=== PATIENT | male | born 1945 ===

== ENCOUNTER 2019-07-29 17:54 | Observation (INO) ==
[2019-07-29 19:19] LABS: Eosinophils % 6.2 %; Hematocrit 24.2 % (37.5-50.1); Hemoglobin 7.1 g/dL (12.9-16.9); Immature Granulocytes % 0.6 % (0-4); Lymphocytes % 30.1 %; Mean Corpuscular HGB Conc 29.3 g/dL (31.6-35.5); Mean Corpuscular Hemoglobin 24.8 pg (28.0-33.3); Mean Corpuscular Volume 84.6 fL (83.0-100.0); Mean Platelet Volume 8.4 fL (9.4-12.4); Monocytes % 8.7 %; Platelet Count 340 K/mcL (140-400); Red Blood Count 2.86 M/mcL (4.19-5.50); Red Cell Distribution Width 15.9 % (11.5-14.5); Segmented Neutrophils % 53.5 %; White Blood Count 9.4 K/mcL (4.3-11.1)
[2019-07-29 19:20] LABS: Basophils # 0.1 K/mcL (0.0-0.2); Basophils % 0.9 %; Eosinophils # 0.6 K/mcL (0.0-0.6); Lymphocytes # 2.8 K/mcL (0.6-4.6); Monocytes # 0.8 K/mcL (0.0-1.3)
[2019-07-29 19:21] LABS: INR 1.2; Prothrombin Time 13.3 Seconds (9.4-12.1)
[2019-07-29] MEDS ORDERED: Pantoprazole 40 MG VIAL IVP ONE (20:55)
[2019-07-29] MEDS ORDERED: 0.9 % Sodium Chloride 250 ML ONE (22:50)
[2019-07-30] MEDS ORDERED: Naloxone 0.4 MG/ML INJ IVP PRN (01:19)
[2019-07-30] MEDS ORDERED: *HR* Heparin 5,000 UNIT/ML VIAL IVP ONE ×2 (01:21→01:45)
[2019-07-30] MEDS ORDERED: *HR* Heparin 5,000 UNIT/ML VIAL IVP PRN ×2 (01:21)
[2019-07-30] MEDS ORDERED: Iron Sucrose Complex 200 MG in 0.9 % Sodium Chloride 100 ML IVPB ONE (01:22)
[2019-07-30] MEDS ORDERED: Cyanocobalamin (B-12) 1,000 MCG/ML VIAL SQ ONE (01:22)
[2019-07-30] MEDS ORDERED: Heparin 25,000 UNIT/250 ML D5W 25,000 UNIT/250 ML IV.SOLN IVC SCH ×3 (01:30→02:00)
[2019-07-30 02:37] LABS: INR 1.1; Prothrombin Time 12.4 Seconds (9.4-12.1)
[2019-07-30 02:39] LABS: Basophils # 0.1 K/mcL (0.0-0.2); Basophils % 0.6 %; Eosinophils # 0.5 K/mcL (0.0-0.6); Eosinophils % 5.8 %; Hematocrit 24.7 % (37.5-50.1); Hemoglobin 7.3 g/dL (12.9-16.9); Immature Granulocytes % 0.3 % (0-4); Lymphocytes # 2.8 K/mcL (0.6-4.6); Lymphocytes % 30.7 %; Mean Corpuscular HGB Conc 29.6 g/dL (31.6-35.5); Mean Corpuscular Hemoglobin 25.2 pg (28.0-33.3); Mean Corpuscular Volume 85.2 fL (83.0-100.0); Mean Platelet Volume 8.5 fL (9.4-12.4); Monocytes # 0.8 K/mcL (0.0-1.3); Monocytes % 8.4 %; Neutrophils # 4.9 K/mcL (1.6-8.9); Platelet Count 307 K/mcL (140-400); Red Cell Distribution Width 16.1 % (11.5-14.5); Segmented Neutrophils % 54.2 %; White Blood Count 9.1 K/mcL (4.3-11.1)
[2019-07-30 02:55] LABS: Alanine Aminotransferase 9 Units/L (7-52); Albumin 3.4 g/dL (3.5-5.7); Albumin/Globulin Ratio 1.2 (1.1-2.2); Alkaline Phosphatase 53 Units/L (34-104); Aspartate Amino Transferase 9 Units/L (13-39); BUN/Creatinine Ratio 23 (6-26); Bilirubin,Total 0.4 mg/dL (0.3-1.0); Blood Urea Nitrogen 24 mg/dL (8-23); Calcium 8.4 mg/dL (8.6-10.3); Carbon Dioxide 22 mEq/L (23-29); Chloride 105 mEq/L (98-107); Globulin 2.9 g/dL (2.4-3.5); Glucose 109 mg/dL (70-105); Magnesium 1.8 mg/dL (1.6-2.6); Osmolality,Calculated 287 (280-300); Phosphorous 3.9 mg/dL (2.7-4.5); Sodium 136 mEq/L (136-145); Total Protein 6.3 g/dL (6.4-8.9); eGFR For African Americans > 60 (> 60); eGFR For Non-African Americans > 60 (> 60)
[2019-07-30] MEDS: Pantoprazole 40 MG VIAL IVP SCH ×2 (04:57→17:32)
[2019-07-30 08:51] LABS: Hematocrit 24.6 % (37.5-50.1); Hemoglobin 7.6 g/dL (12.9-16.9)
[2019-07-30] MEDS: Spironolactone 25 MG TABLET PO SCH (09:00)
[2019-07-30] MEDS: Valsartan 80 MG TABLET PO SCH ×2 (09:00→20:37)
[2019-07-30] MEDS: Aspirin Enteric Coated 81 MG Tablet PO SCH (09:00)
[2019-07-30] MEDS: Metoprolol XL (24 HR) Succ 50 MG TAB.ER.24H PO SCH (09:00)
[2019-07-30] MEDS ORDERED: Lidocaine -MPF 2% 2 ML VIAL ONE (13:02)
[2019-07-30] MEDS ORDERED: *HR* Propofol 200 MG/20 ML VIAL IVP ONE (13:02)
[2019-07-30 15:27] LABS: Hematocrit 25.3 % (37.5-50.1); Hemoglobin 7.7 g/dL (12.9-16.9)
[2019-07-30] MEDS ORDERED: SODIUM CHLORIDE/NAHCO3/KCL/PEG 4,000 ML SOLN.RECON PO ONE (17:00)
[2019-07-30 20:26] LABS: Hematocrit 27.7 % (37.5-50.1); Hemoglobin 8.2 g/dL (12.9-16.9)
[2019-07-31] MEDS: Pantoprazole 40 MG VIAL IVP SCH ×2 (04:48→16:53)
[2019-07-31 06:11] LABS: Basophils # 0.1 K/mcL (0.0-0.2); Basophils % 0.7 %; Eosinophils # 0.4 K/mcL (0.0-0.6); Eosinophils % 5.4 %; Hematocrit 26.6 % (37.5-50.1); Hemoglobin 7.8 g/dL (12.9-16.9); Immature Granulocytes % 0.4 % (0-4); Lymphocytes # 1.7 K/mcL (0.6-4.6); Lymphocytes % 23.2 %; Mean Corpuscular HGB Conc 29.3 g/dL (31.6-35.5); Mean Corpuscular Hemoglobin 24.8 pg (28.0-33.3); Mean Corpuscular Volume 84.4 fL (83.0-100.0); Mean Platelet Volume 8.3 fL (9.4-12.4); Monocytes # 0.6 K/mcL (0.0-1.3); Monocytes % 8.6 %; Neutrophils # 4.5 K/mcL (1.6-8.9); Platelet Count 343 K/mcL (140-400); Red Blood Count 3.15 M/mcL (4.19-5.50); Red Cell Distribution Width 16.5 % (11.5-14.5); Segmented Neutrophils % 61.7 %; White Blood Count 7.3 K/mcL (4.3-11.1)
[2019-07-31 06:32] LABS: BUN/Creatinine Ratio 19 (6-26); Blood Urea Nitrogen 19 mg/dL (8-23); Calcium 8.8 mg/dL (8.6-10.3); Carbon Dioxide 24 mEq/L (23-29); Chloride 105 mEq/L (98-107); Glucose 111 mg/dL (70-105); Osmolality,Calculated 283 (280-300); Phosphorous 3.8 mg/dL (2.7-4.5); Potassium 4.1 mEq/L (3.5-5.1); Sodium 135 mEq/L (136-145); eGFR For African Americans > 60 (> 60); eGFR For Non-African Americans > 60 (> 60)
[2019-07-31] MEDS: Spironolactone 25 MG TABLET PO SCH (08:35)
[2019-07-31] MEDS: Aspirin Enteric Coated 81 MG Tablet PO SCH (08:35)
[2019-07-31] MEDS: Metoprolol XL (24 HR) Succ 50 MG TAB.ER.24H PO SCH (08:36)
[2019-07-31] MEDS: Valsartan 80 MG TABLET PO SCH ×2 (08:36→21:05)
[2019-07-31] MEDS ORDERED: Iron Sucrose Complex 400 MG in 0.9 % Sodium Chloride 250 ML IVPB ONE (09:10)
[2019-07-31] MEDS ORDERED: Lidocaine -MPF 2% 2 ML VIAL ONE (13:56)
[2019-07-31] MEDS ORDERED: *HR* Propofol 200 MG/20 ML VIAL IVP ONE ×4 (13:57→15:10)
[2019-07-31] MEDS ORDERED: *HR* PHENYLEPHRINE 1,000 MCG/10 ML SYRINGE IVP ONE (14:12)
[2019-07-31] MEDS ORDERED: EPHEDrine 50 MG/ML VIAL ONE (14:37)
[2019-07-31] MEDS ORDERED: Isovue-370 500 ML BOTTLE IVP ONE (16:04)
[2019-08-01 04:11] LABS: Hematocrit 25.1 % (37.5-50.1); Hemoglobin 7.5 g/dL (12.9-16.9); Mean Corpuscular HGB Conc 29.9 g/dL (31.6-35.5); Mean Corpuscular Hemoglobin 25.3 pg (28.0-33.3); Mean Corpuscular Volume 84.8 fL (83.0-100.0); Mean Platelet Volume 8.4 fL (9.4-12.4); Platelet Count 326 K/mcL (140-400); Red Blood Count 2.96 M/mcL (4.19-5.50); Red Cell Distribution Width 16.7 % (11.5-14.5); White Blood Count 7.4 K/mcL (4.3-11.1)
[2019-08-01 04:23] LABS: BUN/Creatinine Ratio 16 (6-26); Blood Urea Nitrogen 17 mg/dL (8-23); Calcium 8.6 mg/dL (8.6-10.3); Carbon Dioxide 25 mEq/L (23-29); Chloride 106 mEq/L (98-107); Glucose 119 mg/dL (70-105); Osmolality,Calculated 287 (280-300); Potassium 3.7 mEq/L (3.5-5.1); Sodium 137 mEq/L (136-145); eGFR For African Americans > 60 (> 60); eGFR For Non-African Americans > 60 (> 60)
[2019-08-01] MEDS: Pantoprazole 40 MG VIAL IVP SCH (05:33)
[2019-08-01 07:00] VITALS: BP 109/61
[2019-08-01] MEDS: Aspirin Enteric Coated 81 MG Tablet PO SCH (08:31)
[2019-08-01] MEDS: Spironolactone 25 MG TABLET PO SCH (08:31)
[2019-08-01] MEDS: Valsartan 80 MG TABLET PO SCH (08:31)
[2019-08-01] MEDS: Metoprolol XL (24 HR) Succ 50 MG TAB.ER.24H PO SCH (08:31)
== END 2019-08-01 11:17 | disposition home or self-care (01) ==
LOC: 3BNU 17:54 → EMEROOARM 17:54 → SUATTDRO 21:42 → 3BNU 22:10
PROVIDERS: ADMIT Internal Medicine; ATTEND Internal Medicine

== ENCOUNTER 2019-08-26 12:39 | Inpatient (IN) ==
[2019-08-26] MEDS ORDERED: CeFAZolin Syr 2,000MG/20 ML 2,000 MG/20 ML SYRINGE IVPB ONE (13:14)
[2019-08-26] MEDS ORDERED: MetroNIDAZOLE 500 MG/100 ML 500 MG/100 ML BAG IVPB ONE (13:15)
[2019-08-26] MEDS ORDERED: Ringers Solution, Lactated 1,000 ML IVC SCH ×3 (13:15→20:32)
[2019-08-26] MEDS ORDERED: Ondansetron 4 MG/2 ML VIAL ONE (14:20)
[2019-08-26] MEDS ORDERED: Lidocaine -MPF 2% 2 ML VIAL ONE ×2 (14:20→15:45)
[2019-08-26] MEDS ORDERED: *HR* Propofol 200 MG/20 ML VIAL IVP ONE (14:20)
[2019-08-26] MEDS ORDERED: Dexamethasone 4 MG/ML VIAL ONE (14:20)
[2019-08-26] MEDS ORDERED: *HR* Rocuronium Bromide 50 MG/5 ML VIAL ONE ×2 (14:20→19:09)
[2019-08-26] MEDS ORDERED: *HR* FentaNYL (PF) 100 MCG/2 ML VIAL ONE ×3 (14:20→19:11)
[2019-08-26] MEDS ORDERED: *HR* Succinylcholine 200 MG/10 ML VIAL IVP ONE (14:20)
[2019-08-26] MEDS ORDERED: Lidocaine HCL 4 ML Topical Solution (Laryng-O-Jet Kit Sterile Pak) TP ONE (15:06)
[2019-08-26] MEDS ORDERED: *HR* HYDROmorphone PF 0.5 MG/0.5 ML SYRINGE IVP PRN (15:18)
[2019-08-26] MEDS ORDERED: Heparin 1,000 UNITS/500 mL 500 ML ONE (15:19)
[2019-08-26] MEDS ORDERED: *HR* PHENYLEPHRINE 1,000 MCG/10 ML SYRINGE IVP ONE (15:24)
[2019-08-26] MEDS ORDERED: EPHEDrine 50 MG/ML VIAL ONE (16:16)
[2019-08-26] MEDS ORDERED: Naloxone 0.4 MG/ML INJ IVP PRN (20:28)
[2019-08-26] MEDS ORDERED: *HR* OxyCODONE Immed Rel 5 MG TABLET PO PRN (20:29)
[2019-08-26] MEDS: *HR* Promethazine 25 MG/ML VIAL IVP PRN ×2 (20:45→20:55)
[2019-08-26] MEDS: Valsartan 80 MG TABLET PO SCH (21:54)
[2019-08-26] MEDS: Ondansetron ODT 4 MG TAB.RAPDIS SL PRN (22:21)
[2019-08-27 04:50] LABS: Hematocrit 32.4 % (37.5-50.1); Hemoglobin 9.5 g/dL (12.9-16.9)
[2019-08-27 05:06] LABS: Calcium 8.4 mg/dL (8.6-10.3); Magnesium 1.8 mg/dL (1.6-2.6); Phosphorous 5.6 mg/dL (2.7-4.5); Potassium 4.5 mEq/L (3.5-5.1)
[2019-08-27] MEDS: Aspirin Enteric Coated 81 MG Tablet PO SCH (09:56)
[2019-08-27] MEDS: Furosemide 40 MG TABLET PO SCH (10:29)
[2019-08-27] MEDS: Valsartan 80 MG TABLET PO SCH ×2 (10:29→22:01)
[2019-08-27] MEDS: Spironolactone 25 MG TABLET PO SCH (10:29)
[2019-08-27] MEDS: Metoprolol XL (24 HR) Succ 50 MG TAB.ER.24H PO SCH (10:29)
[2019-08-27] MEDS: 0.9 % Sodium Chloride 1,000 ML IVC SCH ×2 (10:39→13:47)
[2019-08-27 13:11] LABS: Basophils % 0.2 %; Eosinophils % 0.1 %; Hematocrit 29.6 % (37.5-50.1); Hemoglobin 8.9 g/dL (12.9-16.9); Immature Granulocytes % 0.3 % (0-4); Lymphocytes # 0.9 K/mcL (0.6-4.6); Lymphocytes % 9.5 %; Mean Corpuscular HGB Conc 30.1 g/dL (31.6-35.5); Mean Corpuscular Hemoglobin 26.9 pg (28.0-33.3); Mean Corpuscular Volume 89.4 fL (83.0-100.0); Mean Platelet Volume 9.6 fL (9.4-12.4); Monocytes # 0.8 K/mcL (0.0-1.3); Neutrophils # 8.1 K/mcL (1.6-8.9); Platelet Count 268 K/mcL (140-400); Red Blood Count 3.31 M/mcL (4.19-5.50); Red Cell Distribution Width 20.8 % (11.5-14.5); Segmented Neutrophils % 81.9 %; White Blood Count 9.9 K/mcL (4.3-11.1)
[2019-08-27 15:11] LABS: Hematocrit 27.8 % (37.5-50.1); Hemoglobin 8.7 g/dL (12.9-16.9)
[2019-08-27] MEDS ORDERED: Furosemide 20 MG TABLET PO ONE (16:01)
[2019-08-27] MEDS: Spironolactone 25 MG TABLET PO ONE ×2 (16:45→17:08)
[2019-08-27] MEDS ORDERED: Spironolactone 25 MG TABLET PO ONE (21:00)
[2019-08-27] MEDS: Ringers Solution, Lactated 1,000 ML IVC SCH (22:06)
[2019-08-28 05:04] LABS: Basophils % 0.4 %; Eosinophils % 0.2 %; Hematocrit 26.8 % (37.5-50.1); Hemoglobin 8.3 g/dL (12.9-16.9); Immature Granulocytes % 0.2 % (0-4); Lymphocytes % 10.2 %; Mean Corpuscular Hemoglobin 27.5 pg (28.0-33.3); Mean Corpuscular Volume 88.7 fL (83.0-100.0); Mean Platelet Volume 9.3 fL (9.4-12.4); Monocytes % 10.5 %; Neutrophils # 7.6 K/mcL (1.6-8.9); Platelet Count 231 K/mcL (140-400); Red Blood Count 3.02 M/mcL (4.19-5.50); Red Cell Distribution Width 20.7 % (11.5-14.5); Segmented Neutrophils % 78.5 %; White Blood Count 9.6 K/mcL (4.3-11.1)
[2019-08-28 05:25] LABS: BUN/Creatinine Ratio 21 (6-26); Blood Urea Nitrogen 28 mg/dL (8-23); Calcium 8.2 mg/dL (8.6-10.3); Carbon Dioxide 23 mEq/L (23-29); Chloride 102 mEq/L (98-107); Glucose 154 mg/dL (70-105); Osmolality,Calculated 287 (280-300); Sodium 134 mEq/L (136-145); eGFR For African Americans > 60 (> 60); eGFR For Non-African Americans 52 (> 60)
[2019-08-28] MEDS ORDERED: *HR* Enoxaparin 40 MG/0.4 ML SYRINGE SQ SCH (07:00)
[2019-08-28] MEDS: Spironolactone 25 MG TABLET PO SCH (08:06)
[2019-08-28] MEDS: Ringers Solution, Lactated 1,000 ML IVC SCH (08:06)
[2019-08-28] MEDS: Furosemide 40 MG TABLET PO SCH (08:07)
[2019-08-28] MEDS: Aspirin Enteric Coated 81 MG Tablet PO SCH (08:07)
[2019-08-28] MEDS: Valsartan 80 MG TABLET PO SCH ×2 (08:07→20:22)
[2019-08-28] MEDS: Metoprolol XL (24 HR) Succ 50 MG TAB.ER.24H PO SCH (08:07)
[2019-08-28] MEDS: Ondansetron ODT 4 MG TAB.RAPDIS SL PRN (08:23)
[2019-08-28] MEDS ORDERED: Ringers Solution, Lactated 1,000 ML IVC SCH (09:45)
[2019-08-28] MEDS ORDERED: *HR* HYDROmorphone 2 MG/ML SYRINGE IVP ONE (12:02)
[2019-08-28] MEDS: D5% in 0.45% NACL w KCl 20 MEQ/1,000 ML MLS IVC SCH (12:24)
[2019-08-28] MEDS ORDERED: Piperacillin/Tazobactam 3.375 GM in 0.9 % Sodium Chloride Mini Bag 100 ML IVPB SCH (16:00)
[2019-08-28] MEDS ORDERED: Isovue-370 500 ML BOTTLE PO ONE (17:52)
[2019-08-28] MEDS ORDERED: *HR* Metoprolol 5 MG/5 ML VIAL IVP PRN (18:32)
[2019-08-29] MEDS ORDERED: Furosemide 20 MG/2 ML VIAL IVP ONE ×2 (00:39→09:21)
[2019-08-29] MEDS: Morphine Sulfate 2 MG/ML SYRINGE IVP PRN (01:37)
[2019-08-29 04:48] LABS: Hematocrit 28.5 % (37.5-50.1); Hemoglobin 8.7 g/dL (12.9-16.9)
[2019-08-29 05:05] LABS: BUN/Creatinine Ratio 23 (6-26); Blood Urea Nitrogen 28 mg/dL (8-23); Calcium 8.6 mg/dL (8.6-10.3); Carbon Dioxide 24 mEq/L (23-29); Chloride 103 mEq/L (98-107); Glucose 155 mg/dL (70-105); Magnesium 1.9 mg/dL (1.6-2.6); Osmolality,Calculated 287 (280-300); Phosphorous 3.4 mg/dL (2.7-4.5); Potassium 4.5 mEq/L (3.5-5.1); Sodium 134 mEq/L (136-145); eGFR For African Americans > 60 (> 60); eGFR For Non-African Americans 57 (> 60)
[2019-08-29] MEDS: D5% in 0.45% NACL w KCl 20 MEQ/1,000 ML MLS IVC SCH (05:54)
[2019-08-29] MEDS: Pantoprazole 40 MG VIAL IVP SCH ×2 (05:55→18:25)
[2019-08-29] MEDS: Spironolactone 25 MG TABLET PO SCH (07:38)
[2019-08-29] MEDS: Valsartan 80 MG TABLET PO SCH (07:38)
[2019-08-29] MEDS ORDERED: Furosemide 20 MG/2 ML VIAL IVP SCH ×2 (07:45→09:00)
[2019-08-29] MEDS: *HR* Heparin 5,000 UNIT/ML VIAL SQ SCH ×2 (08:22→18:23)
[2019-08-29] MEDS ORDERED: Ipratropium/Albuterol Neb 3 ML IH PRN (09:03)
[2019-08-29] MEDS ORDERED: methylPREDNISolone 125 MG/2 ML VIAL IVP ONE (09:20)
[2019-08-29] MEDS ORDERED: Isovue-370 500 ML BOTTLE IVP ONE (09:24)
[2019-08-29 09:35] LABS: Basophils % 0.1 %; Hematocrit 29.8 % (37.5-50.1); Hemoglobin 8.9 g/dL (12.9-16.9); Immature Granulocytes % 0.7 % (0-4); Lymphocytes # 0.8 K/mcL (0.6-4.6); Lymphocytes % 5.3 %; Mean Corpuscular HGB Conc 29.9 g/dL (31.6-35.5); Mean Corpuscular Hemoglobin 26.4 pg (28.0-33.3); Mean Corpuscular Volume 88.4 fL (83.0-100.0); Mean Platelet Volume 9.9 fL (9.4-12.4); Monocytes # 0.9 K/mcL (0.0-1.3); Monocytes % 6.1 %; Platelet Count 305 K/mcL (140-400); Red Blood Count 3.37 M/mcL (4.19-5.50); Red Cell Distribution Width 20.6 % (11.5-14.5); Segmented Neutrophils % 87.8 %; White Blood Count 14.8 K/mcL (4.3-11.1)
[2019-08-29] MEDS ORDERED: Ipratropium/Albuterol Neb 3 ML ONE (10:01)
[2019-08-29] MEDS ORDERED: Albuterol Neb 7.5 MG, Ipratropium Neb 0.5 MG, Sodium Chloride for inhalation 9 ML IH ONE (10:02)
[2019-08-29 10:18] LABS: ABG Base Excess 1 mEq/L (-2 to 3); ABG HCO3 25 mEq/L (21-27); ABG Oxygen Saturation 96 % (95-98); ABG PCO2 37 mmHg (35-45); ABG PH 7.44 pH Units (7.32-7.45); ABG PO2 79 mmHg (85-104); ABG TCO2 27 mEq/L (20-26)
[2019-08-29] MEDS ORDERED: Ipratropium/Albuterol Neb 3 ML IH ONE (10:22)
[2019-08-29] MEDS: Ipratropium/Albuterol Neb 3 ML IH SCH (10:27)
[2019-08-29] MEDS ORDERED: Azithromycin 500 MG in 0.9 % Sodium Chloride 250 ML IVPB SCH (11:00)
[2019-08-29] MEDS: Albuterol 2.5 MG/3 ML NEBULIZER IH SCH ×4 (11:28→23:42)
[2019-08-29] MEDS: Acetylcysteine 10% 2 ML INHSOL IH SCH ×4 (11:28→23:43)
[2019-08-29] MEDS ORDERED: Ipratropium/Albuterol Neb 3 ML IH SCH (12:00)
[2019-08-29] MEDS ORDERED: cefTRIAXone 2,000 MG in Water for inj. (sterile) 20 ML IVP SCH (13:00)
[2019-08-29] MEDS ORDERED: Furosemide 40 MG/4 ML VIAL IVP ONE (15:00)
[2019-08-29] MEDS: MethylPREDNISolone 40 MG/ML VIAL IVP SCH (18:19)
[2019-08-29] MEDS: GuaiFENesin Liq 200 MG/10 ML UDC GTUBE SCH (22:39)
[2019-08-30] MEDS: GuaiFENesin Liq 200 MG/10 ML UDC GTUBE SCH ×6 (02:40→23:02)
[2019-08-30] MEDS: Albuterol 2.5 MG/3 ML NEBULIZER IH SCH ×4 (03:40→16:33)
[2019-08-30] MEDS: Acetylcysteine 10% 2 ML INHSOL IH SCH ×6 (03:41→23:36)
[2019-08-30] MEDS: MethylPREDNISolone 40 MG/ML VIAL IVP SCH ×2 (05:09→17:36)
[2019-08-30] MEDS: *HR* Heparin 5,000 UNIT/ML VIAL SQ SCH (05:09)
[2019-08-30] MEDS: Pantoprazole 40 MG VIAL IVP SCH ×2 (05:09→17:34)
[2019-08-30 05:43] LABS: Hematocrit 25.2 % (37.5-50.1); Hemoglobin 7.8 g/dL (12.9-16.9); Mean Corpuscular Hemoglobin 26.9 pg (28.0-33.3); Mean Corpuscular Volume 86.9 fL (83.0-100.0); Mean Platelet Volume 9.7 fL (9.4-12.4); Platelet Count 275 K/mcL (140-400); Red Cell Distribution Width 20.5 % (11.5-14.5); White Blood Count 13.7 K/mcL (4.3-11.1)
[2019-08-30 06:04] LABS: Alanine Aminotransferase 9 Units/L (7-52); Albumin 2.9 g/dL (3.5-5.7); Albumin/Globulin Ratio 0.9 (1.1-2.2); Alkaline Phosphatase 44 Units/L (34-104); Aspartate Amino Transferase 15 Units/L (13-39); BUN/Creatinine Ratio 31 (6-26); Bilirubin,Total 0.3 mg/dL (0.3-1.0); Blood Urea Nitrogen 40 mg/dL (8-23); Calcium 8.3 mg/dL (8.6-10.3); Carbon Dioxide 28 mEq/L (23-29); Chloride 103 mEq/L (98-107); Globulin 3.1 g/dL (2.4-3.5); Glucose 161 mg/dL (70-105); Osmolality,Calculated 297 (280-300); Potassium 3.8 mEq/L (3.5-5.1); Sodium 137 mEq/L (136-145); eGFR For African Americans > 60 (> 60); eGFR For Non-African Americans 54 (> 60)
[2019-08-30] MEDS ORDERED: 0.9 % Sodium Chloride 250 ML ONE (07:57)
[2019-08-30] MEDS ORDERED: Vancomycin 1,750 MG in 0.9 % Sodium Chloride 250 ML IVPB SCH (08:00)
[2019-08-30] MEDS ORDERED: Vancomycin 1,750 MG/517.5 ML IV.SOLN IVPB ONE (08:20)
[2019-08-30] MEDS: Piperacillin/Tazobactam 3.375 GM in 0.9 % Sodium Chloride Mini Bag 100 ML IVPB SCH ×2 (08:24→17:34)
[2019-08-30] MEDS ORDERED: Furosemide 20 MG/2 ML VIAL IVP SCH (09:00)
[2019-08-30] MEDS: Furosemide 20 MG/2 ML VIAL IVP SCH ×2 (12:17→20:43)
[2019-08-30] MEDS ORDERED: *HR* Metoprolol 5 MG/5 ML VIAL IVP SCH (12:45)
[2019-08-30] MEDS ORDERED: D10% in Water 500 ML IVC PRN (13:32)
[2019-08-30] MEDS: Morphine Sulfate 2 MG/ML SYRINGE IVP PRN (14:56)
[2019-08-30] MEDS ORDERED: Clinimix E 5%-20% SOLUTION 2,000 ML, Parenteral Amino Acid 10% 0 ML with MVI, adult wi... IVC SCH (17:00)
[2019-08-30] MEDS ORDERED: Clinimix E 5%-15% SOLUTION 2,000 ML with MVI, adult with vitamin K 10 ML IVC SCH (17:00)
[2019-08-30] MEDS: *HR* Metoprolol 5 MG/5 ML VIAL IVP SCH (17:34)
[2019-08-30] MEDS ORDERED: Levalbuterol Neb 0.63 MG/3 ML IH SCH (22:00)
[2019-08-30] MEDS: Levalbuterol Neb 0.63 MG/3 ML IH SCH (23:35)
[2019-08-30 23:40] LABS: Hematocrit 29.3 % (37.5-50.1); Hemoglobin 9.1 g/dL (12.9-16.9)
[2019-08-31] MEDS: Piperacillin/Tazobactam 3.375 GM in 0.9 % Sodium Chloride Mini Bag 100 ML IVPB SCH ×4 (00:42→23:28)
[2019-08-31] MEDS: Vancomycin 1,750 MG/517.5 ML IV.SOLN IVPB SCH (00:42)
[2019-08-31] MEDS: *HR* Metoprolol 5 MG/5 ML VIAL IVP SCH ×5 (00:43→23:28)
[2019-08-31] MEDS: Insulin LISPRO 300 UNITS/3 ML VIAL SQ SCH ×6 (01:00→20:25)
[2019-08-31] MEDS: Levalbuterol Neb 0.63 MG/3 ML IH SCH ×5 (03:09→19:59)
[2019-08-31] MEDS: Acetylcysteine 10% 2 ML INHSOL IH SCH ×5 (03:10→19:59)
[2019-08-31] MEDS: GuaiFENesin Liq 200 MG/10 ML UDC GTUBE SCH ×6 (03:23→21:18)
[2019-08-31 03:50] LABS: Basophils % 0.1 %; Hematocrit 27.3 % (37.5-50.1); Hemoglobin 8.7 g/dL (12.9-16.9); Immature Granulocytes % 0.6 % (0-4); Lymphocytes # 0.6 K/mcL (0.6-4.6); Lymphocytes % 3.5 %; Mean Corpuscular HGB Conc 31.9 g/dL (31.6-35.5); Mean Corpuscular Hemoglobin 28.2 pg (28.0-33.3); Mean Corpuscular Volume 88.6 fL (83.0-100.0); Mean Platelet Volume 9.6 fL (9.4-12.4); Monocytes # 0.9 K/mcL (0.0-1.3); Monocytes % 5.8 %; Neutrophils # 14.3 K/mcL (1.6-8.9); Nucleated Red Blood Cells 0.1 /100 WBC (0); Platelet Count 285 K/mcL (140-400); Red Blood Count 3.08 M/mcL (4.19-5.50); Red Cell Distribution Width 19.2 % (11.5-14.5); White Blood Count 15.8 K/mcL (4.3-11.1)
[2019-08-31 04:09] LABS: BUN/Creatinine Ratio 38 (6-26); Blood Urea Nitrogen 50 mg/dL (8-23); Calcium 8.3 mg/dL (8.6-10.3); Carbon Dioxide 29 mEq/L (23-29); Chloride 105 mEq/L (98-107); Glucose 174 mg/dL (70-105); Magnesium 2.4 mg/dL (1.6-2.6); Osmolality,Calculated 310 (280-300); Potassium 3.4 mEq/L (3.5-5.1); Sodium 141 mEq/L (136-145); Triglycerides 137 mg/dL (< 150); eGFR For African Americans > 60 (> 60); eGFR For Non-African Americans 54 (> 60)
[2019-08-31] MEDS ORDERED: Potassium Chloride 20 MEQ, Lidocaine 1% 2 ML in 0.9 % Sodium Chloride 250 ML IVPB ONE (04:30)
[2019-08-31] MEDS: MethylPREDNISolone 40 MG/ML VIAL IVP SCH (05:48)
[2019-08-31] MEDS: Pantoprazole 40 MG VIAL IVP SCH ×2 (05:49→17:37)
[2019-08-31] MEDS: predniSONE 20 MG TABLET PO SCH (08:14)
[2019-08-31] MEDS: Furosemide 20 MG/2 ML VIAL IVP SCH (08:15)
[2019-08-31 10:35] LABS: Hematocrit 30.1 % (37.5-50.1); Hemoglobin 9.6 g/dL (12.9-16.9)
[2019-08-31] MEDS ORDERED: Metoprolol XL (24 HR) Succ 50 MG TAB.ER.24H PO SCH (13:15)
[2019-08-31] MEDS ORDERED: Clinimix E 5%-15% SOLUTION 2,000 ML with MVI, adult with vitamin K 10 ML IVC SCH (17:00)
[2019-08-31] MEDS ORDERED: Acetaminophen IV 1,000 MG/100 ML BAG IVPB ONE (20:48)
[2019-08-31] MEDS: Morphine Sulfate 2 MG/ML SYRINGE IVP PRN (23:26)
[2019-09-01] MEDS: Levalbuterol Neb 0.63 MG/3 ML IH SCH ×7 (00:29→23:24)
[2019-09-01] MEDS: Acetylcysteine 10% 2 ML INHSOL IH SCH ×7 (00:29→23:24)
[2019-09-01] MEDS: Vancomycin 1,750 MG/517.5 ML IV.SOLN IVPB SCH (01:29)
[2019-09-01] MEDS: Insulin LISPRO 300 UNITS/3 ML VIAL SQ SCH ×6 (01:40→20:20)
[2019-09-01 01:44] LABS: Bilirubin,Urine Negative (Negative); Blood,Urine Small (Negative); Clarity,Urine Clear (Clear); Color,Urine Light-Yellow (Yellow); Glucose,Urine (UA) 70 mg/dL (Normal); Ketones,Urine Negative (Negative); Leukocyte Esterase,Urine Negative (Negative); Mucus,Urine Few per lpf (None-Few); Nitrite,Urine Negative (Negative); Protein,Urine 30 mg/dL (Neg-Trace); RBC,Urine 15-30 per hpf (0-3); Specific Gravity,Urine 1.025 (1.010-1.025); Urobilinogen,Urine Normal (Normal)
[2019-09-01] MEDS: GuaiFENesin Liq 200 MG/10 ML UDC GTUBE SCH ×6 (02:54→20:21)
[2019-09-01 04:16] LABS: Basophils % 0.1 %; Hematocrit 28.2 % (37.5-50.1); Hemoglobin 8.7 g/dL (12.9-16.9); Immature Granulocytes % 1.1 % (0-4); Lymphocytes # 0.9 K/mcL (0.6-4.6); Lymphocytes % 7.9 %; Mean Corpuscular HGB Conc 30.9 g/dL (31.6-35.5); Mean Corpuscular Hemoglobin 27.4 pg (28.0-33.3); Mean Platelet Volume 9.6 fL (9.4-12.4); Monocytes # 0.9 K/mcL (0.0-1.3); Monocytes % 7.4 %; Neutrophils # 9.8 K/mcL (1.6-8.9); Platelet Count 272 K/mcL (140-400); Red Blood Count 3.17 M/mcL (4.19-5.50); Red Cell Distribution Width 19.2 % (11.5-14.5); Segmented Neutrophils % 83.5 %; White Blood Count 11.7 K/mcL (4.3-11.1)
[2019-09-01 04:37] LABS: BUN/Creatinine Ratio 56 (6-26); Blood Urea Nitrogen 54 mg/dL (8-23); Calcium 8.6 mg/dL (8.6-10.3); Carbon Dioxide 29 mEq/L (23-29); Chloride 107 mEq/L (98-107); Glucose 178 mg/dL (70-105); Magnesium 2.4 mg/dL (1.6-2.6); Osmolality,Calculated 313 (280-300); Phosphorous 3.4 mg/dL (2.7-4.5); Potassium 3.3 mEq/L (3.5-5.1); Sodium 142 mEq/L (136-145); eGFR For African Americans > 60 (> 60); eGFR For Non-African Americans > 60 (> 60)
[2019-09-01] MEDS: *HR* Metoprolol 5 MG/5 ML VIAL IVP SCH ×3 (05:32→17:32)
[2019-09-01] MEDS: Pantoprazole 40 MG VIAL IVP SCH ×2 (05:32→17:32)
[2019-09-01] MEDS: Metoprolol XL (24 HR) Succ 50 MG TAB.ER.24H PO SCH (07:40)
[2019-09-01] MEDS: Furosemide 20 MG/2 ML VIAL IVP SCH (07:51)
[2019-09-01] MEDS: predniSONE 20 MG TABLET PO SCH (07:51)
[2019-09-01] MEDS: Piperacillin/Tazobactam 3.375 GM in 0.9 % Sodium Chloride Mini Bag 100 ML IVPB SCH ×2 (07:52→16:28)
[2019-09-01] MEDS: Morphine Sulfate 2 MG/ML SYRINGE IVP PRN (07:54)
[2019-09-01] MEDS ORDERED: Aminoglycoside Consult 1 EACH MC ONE (12:37)
[2019-09-01] MEDS ORDERED: Clinimix E 5%-15% SOLUTION 2,000 ML with MVI, adult with vitamin K 10 ML IVC SCH (17:00)
[2019-09-02] MEDS: *HR* Metoprolol 5 MG/5 ML VIAL IVP SCH ×5 (00:30→23:51)
[2019-09-02] MEDS: Piperacillin/Tazobactam 3.375 GM in 0.9 % Sodium Chloride Mini Bag 100 ML IVPB SCH ×3 (00:31→15:25)
[2019-09-02] MEDS: Insulin LISPRO 300 UNITS/3 ML VIAL SQ SCH ×6 (00:39→21:23)
[2019-09-02] MEDS: Levalbuterol Neb 0.63 MG/3 ML IH SCH ×6 (03:39→23:47)
[2019-09-02] MEDS: Acetylcysteine 10% 2 ML INHSOL IH SCH ×6 (03:39→23:47)
[2019-09-02] MEDS: Pantoprazole 40 MG VIAL IVP SCH ×2 (05:30→17:41)
[2019-09-02 05:31] LABS: Basophils % 0.2 %; Eosinophils % 0.1 %; Hematocrit 30.9 % (37.5-50.1); Hemoglobin 9.6 g/dL (12.9-16.9); Immature Granulocytes % 2.2 % (0-4); Lymphocytes # 0.9 K/mcL (0.6-4.6); Lymphocytes % 7.3 %; Mean Corpuscular HGB Conc 31.1 g/dL (31.6-35.5); Mean Corpuscular Hemoglobin 27.4 pg (28.0-33.3); Mean Corpuscular Volume 88.3 fL (83.0-100.0); Mean Platelet Volume 9.5 fL (9.4-12.4); Monocytes # 1.1 K/mcL (0.0-1.3); Monocytes % 8.3 %; Neutrophils # 10.4 K/mcL (1.6-8.9); Nucleated Red Blood Cells 0.2 /100 WBC (0); Platelet Count 258 K/mcL (140-400); Red Cell Distribution Width 19.6 % (11.5-14.5); Segmented Neutrophils % 81.9 %; White Blood Count 12.7 K/mcL (4.3-11.1)
[2019-09-02 05:53] LABS: BUN/Creatinine Ratio 50 (6-26); Blood Urea Nitrogen 47 mg/dL (8-23); Calcium 8.7 mg/dL (8.6-10.3); Carbon Dioxide 30 mEq/L (23-29); Chloride 107 mEq/L (98-107); Glucose 189 mg/dL (70-105); Magnesium 2.2 mg/dL (1.6-2.6); Osmolality,Calculated 311 (280-300); Phosphorous 3.5 mg/dL (2.7-4.5); Potassium 4.3 mEq/L (3.5-5.1); Sodium 142 mEq/L (136-145); eGFR For African Americans > 60 (> 60); eGFR For Non-African Americans > 60 (> 60)
[2019-09-02] MEDS: GuaiFENesin Liq 200 MG/10 ML UDC GTUBE SCH ×6 (06:03→23:52)
[2019-09-02] MEDS: Metoprolol XL (24 HR) Succ 50 MG TAB.ER.24H PO SCH (09:07)
[2019-09-02] MEDS: Furosemide 20 MG/2 ML VIAL IVP SCH (09:07)
[2019-09-02] MEDS: predniSONE 20 MG TABLET PO SCH (09:07)
[2019-09-02] MEDS ORDERED: Clinimix E 5%-15% SOLUTION 2,000 ML with MVI, adult with vitamin K 10 ML IVC SCH (17:00)
[2019-09-03] MEDS: Piperacillin/Tazobactam 3.375 GM in 0.9 % Sodium Chloride Mini Bag 100 ML IVPB SCH ×3 (00:02→16:02)
[2019-09-03] MEDS: Insulin LISPRO 300 UNITS/3 ML VIAL SQ SCH ×6 (00:14→21:15)
[2019-09-03] MEDS: Acetylcysteine 10% 2 ML INHSOL IH SCH ×5 (04:19→20:12)
[2019-09-03] MEDS: Levalbuterol Neb 0.63 MG/3 ML IH SCH ×5 (04:19→20:12)
[2019-09-03 06:02] LABS: Basophils % 0.2 %; Eosinophils # 0.3 K/mcL (0.0-0.6); Eosinophils % 2.2 %; Hematocrit 27.9 % (37.5-50.1); Hemoglobin 8.6 g/dL (12.9-16.9); Immature Granulocytes % 3.5 % (0-4); Lymphocytes # 1.3 K/mcL (0.6-4.6); Lymphocytes % 9.2 %; Mean Corpuscular HGB Conc 30.8 g/dL (31.6-35.5); Mean Corpuscular Hemoglobin 27.1 pg (28.0-33.3); Mean Platelet Volume 9.8 fL (9.4-12.4); Monocytes % 7.1 %; Neutrophils # 10.9 K/mcL (1.6-8.9); Nucleated Red Blood Cells 0.1 /100 WBC (0); Platelet Count 224 K/mcL (140-400); Red Blood Count 3.17 M/mcL (4.19-5.50); Red Cell Distribution Width 19.4 % (11.5-14.5); Segmented Neutrophils % 77.8 %; White Blood Count 13.9 K/mcL (4.3-11.1)
[2019-09-03 06:25] LABS: BUN/Creatinine Ratio 54 (6-26); Blood Urea Nitrogen 45 mg/dL (8-23); Calcium 8.1 mg/dL (8.6-10.3); Carbon Dioxide 31 mEq/L (23-29); Chloride 103 mEq/L (98-107); Glucose 171 mg/dL (70-105); Magnesium 2.2 mg/dL (1.6-2.6); Osmolality,Calculated 300 (280-300); Phosphorous 4.3 mg/dL (2.7-4.5); Potassium 3.6 mEq/L (3.5-5.1); Sodium 137 mEq/L (136-145); eGFR For African Americans > 60 (> 60); eGFR For Non-African Americans > 60 (> 60)
[2019-09-03] MEDS: GuaiFENesin Liq 200 MG/10 ML UDC GTUBE SCH ×2 (06:44→09:36)
[2019-09-03] MEDS: *HR* Metoprolol 5 MG/5 ML VIAL IVP SCH ×2 (06:46→09:49)
[2019-09-03] MEDS: Pantoprazole 40 MG VIAL IVP SCH (06:47)
[2019-09-03] MEDS: Metoprolol XL (24 HR) Succ 50 MG TAB.ER.24H PO SCH (08:20)
[2019-09-03] MEDS: Furosemide 20 MG/2 ML VIAL IVP SCH (08:20)
[2019-09-03] MEDS: predniSONE 20 MG TABLET PO SCH (08:20)
[2019-09-03 10:12] LABS: Adenovirus Not Detected (Not Detect); Bordetella Pertussis Not Detected (Not Detect); Chlamydophila pneumoniae Not Detected (Not Detect); Coronavirus 229E Not Detected (Not Detect); Coronavirus HKU1 Not Detected (Not Detect); Coronavirus NL63 Not Detected (Not Detect); Coronavirus OC43 Not Detected (Not Detect); Human Metapneumovirus Not Detected (Not Detect); Human Rhinovirus/Enterovirus Not Detected (Not Detect); Influenza A Subtype 2009 H1 Not Detected (Not Detect); Influenza B Not Detected (Not Detect); Mycoplasma pneumoniae Not Detected (Not Detect); Parainfluenza Virus 1 Not Detected (Not Detect); Parainfluenza Virus 2 Not Detected (Not Detect); Parainfluenza Virus 3 Not Detected (Not Detect); Parainfluenza Virus 4 Not Detected (Not Detect); Respiratory Syncytial Virus Not Detected (Not Detect)
[2019-09-03 10:14] LABS: SARS-CoV-2 Not Detected (Not Detect)
[2019-09-03] MEDS: Valsartan 80 MG TABLET PO SCH (11:08)
[2019-09-03] MEDS: Spironolactone 25 MG TABLET PO SCH (11:08)
[2019-09-03] MEDS: Sucralfate 1 GM TABLET PO SCH ×3 (11:09→21:02)
[2019-09-03] MEDS: Aspirin Enteric Coated 81 MG Tablet PO SCH (11:09)
[2019-09-03] MEDS: *HR* Heparin 5,000 UNIT/ML VIAL SQ SCH (17:11)
[2019-09-04] MEDS: Acetylcysteine 10% 2 ML INHSOL IH SCH ×4 (00:08→11:21)
[2019-09-04] MEDS: Levalbuterol Neb 0.63 MG/3 ML IH SCH ×4 (00:08→11:21)
[2019-09-04] MEDS: Insulin LISPRO 300 UNITS/3 ML VIAL SQ SCH ×3 (00:14→08:38)
[2019-09-04] MEDS: Piperacillin/Tazobactam 3.375 GM in 0.9 % Sodium Chloride Mini Bag 100 ML IVPB SCH (00:23)
[2019-09-04] MEDS ORDERED: Calcium Gluconate 1gm/50mL 1 GM/50 ML BAG IVPB ONE (04:03)
[2019-09-04 06:15] LABS: Basophils % 0.2 %; Eosinophils # 0.3 K/mcL (0.0-0.6); Hemoglobin 8.4 g/dL (12.9-16.9); Lymphocytes # 1.6 K/mcL (0.6-4.6); Lymphocytes % 11.6 %; Mean Corpuscular HGB Conc 31.1 g/dL (31.6-35.5); Mean Corpuscular Hemoglobin 27.8 pg (28.0-33.3); Mean Corpuscular Volume 89.4 fL (83.0-100.0); Mean Platelet Volume 10.6 fL (9.4-12.4); Monocytes # 1.2 K/mcL (0.0-1.3); Monocytes % 8.7 %; Neutrophils # 10.3 K/mcL (1.6-8.9); Platelet Count 240 K/mcL (140-400); Red Blood Count 3.02 M/mcL (4.19-5.50); Red Cell Distribution Width 19.4 % (11.5-14.5); Segmented Neutrophils % 73.5 %
[2019-09-04] MEDS: Sucralfate 1 GM TABLET PO SCH ×2 (06:23→11:37)
[2019-09-04] MEDS: *HR* Heparin 5,000 UNIT/ML VIAL SQ SCH (06:23)
[2019-09-04 06:27] LABS: BUN/Creatinine Ratio 50 (6-26); Blood Urea Nitrogen 47 mg/dL (8-23); Calcium 7.8 mg/dL (8.6-10.3); Carbon Dioxide 29 mEq/L (23-29); Chloride 103 mEq/L (98-107); Glucose 102 mg/dL (70-105); Osmolality,Calculated 298 (280-300); Potassium 3.6 mEq/L (3.5-5.1); Sodium 138 mEq/L (136-145); eGFR For African Americans > 60 (> 60); eGFR For Non-African Americans > 60 (> 60)
[2019-09-04 07:31] VITALS: BP 117/75
[2019-09-04] MEDS: Valsartan 80 MG TABLET PO SCH (08:39)
[2019-09-04] MEDS: Spironolactone 25 MG TABLET PO SCH (08:39)
[2019-09-04] MEDS: Metoprolol XL (24 HR) Succ 50 MG TAB.ER.24H PO SCH (08:39)
[2019-09-04] MEDS: Aspirin Enteric Coated 81 MG Tablet PO SCH (08:39)
[2019-09-04] MEDS: predniSONE 20 MG TABLET PO SCH (08:39)
[2019-09-04] MEDS ORDERED: Furosemide 20 MG TABLET PO PRN (08:45)
[2019-09-04] MEDS ORDERED: Furosemide 40 MG TABLET PO SCH (09:00)
[2019-09-04] MEDS ORDERED: *HR* Atropine Sulfate 1 MG/10 ML SYRINGE ONE (12:33)
== END 2019-09-04 12:38 | disposition home health service (06) | DRG 329 ==
LOC: SAMDAY 12:39 → 3ANU 21:37 → 2NNU 08-29 10:53
PROVIDERS: ADMIT Surgery; ATTEND Surgery